=== PATIENT | male | born 1930 | race Caucasian/White ===

== ENCOUNTER 2017-01-20 10:54 | Emergency (ER) | payer MEDICARE ==
[~2017-01-20] VITALS: Ht 177.8 cm; Wt 76.0 kg
[~2017-01-20 10:54] MED LIST: ATORVASTATIN CA10 MG PO; CLOPIDOGREL75 MG PO; FERRO-BOB325 MG PO; METOPROL TAR25 MG PO; ONDANSETRON4 MG PO; RAMIPRIL2.5 MG PO; TAMSULOSIN0.4 MG PO
[2017-01-20 12:09] LABS: HEMATOCRIT 31.9 % (39.0-50.0); HEMOGLOBIN 11.3 g/dl (14.0-18.0); IMMATURE GRANULOCYTES 0.6 % (0.0-1.0); MEAN CORPUSCULAR HGB 35.4 pG CALC (26.0-32.0); MEAN CORPUSCULAR HGB CONC 35.4 g/L CALC (32.0-36.0); NEUT# 11.34 thou/uL (1.82-7.42); RED BLOOD COUNT 3.19 mill/uL (4.70-6.10); RED CELL DISTRI WIDTH 14.6 % (11.5-15.5)
[2017-01-20 12:17] LABS: CALCIUM 9.2 mg/dL (8.4-10.2); CREATININE 2.1 mg/dL (0.7-1.3); POTASSIUM 4.3 mmol/l (3.5-5.1)
[2017-01-20 13:02] LABS: URINE BILIRUBIN - DIPSTICK NEGATIVE (NEGATIVE); URINE BLOOD DIPSTICK MODERATE (NEGATIVE); URINE COLOR YELLOW; URINE GLUCOSE - DIPSTICK 100 mg/dL (NEGATIVE); URINE KETONE TRACE mg/dL (NEGATIVE); URINE LEUK ESTERASE NEGATIVE (NEGATIVE); URINE NITRITE - DIPSTICK NEGATIVE (Negative); URINE PROTEIN - DIPSTICK 100 mg/dL (NEG-TRACE); URINE SPECIFIC GRAVITY 1.025; URINE UROBILINOGEN - DIPSTICK 0.2 E.U./dL (0.2)
[2017-01-20 13:06] LABS: URINE CLARITY CLEAR
[2017-01-20 13:15] LABS: URINE HYALINE CAST FEW lpf (NONE-RARE); URINE SQUAMOUS EPITHELIAL CELL FEW EPI/hpf (0-FEW)
[2017-01-20 13:34] VITALS: BP 165/72
== END 2017-01-20 13:45 | disposition short-term general hospital (02) ==
LOC: ED 10:54
PROVIDERS: Family Medicine
DX: I21.4 Non-ST elevation (NSTEMI) myocardial infarction (principal); I10 Essential (primary) hypertension; I25.10 Atherosclerotic heart disease of native coronary artery without angina pectoris; Z95.1 Presence of aortocoronary bypass graft

== ENCOUNTER 2017-05-11 09:31 | Emergency (ER) | payer MEDICARE ==
[~2017-05-11] VITALS: Ht 177.8 cm; Wt 64.0 kg
[2017-05-11 10:37] LABS: ALBUMIN 4.2 g/dL (3.2-5.0); BILIRUBIN, TOTAL 2.3 mg/dL (0.0-1.4); TOTAL PROTEIN 7.5 g/dL (6.3-8.2)
[2017-05-11 10:39] LABS: INTERNATIONAL NORMALIZED RATIO 1.6 RATIO (0.7-1.3); PROTHROMBIN TIME 18.6 SECONDS (9.0-12.5)
[2017-05-11] MEDS ORDERED: KLOR-CON M2020 MEQ PO (10:44)
[2017-05-11] MEDS ORDERED: FUROSEMIDE20 MG PO (10:45)
[2017-05-11] MEDS ORDERED: VITAMIN B-12500 MCG PO (10:46)
[2017-05-11 10:58] LABS: INFLUENZA A NONE DETECTED (NONE DETECT); INFLUENZA B NONE DETECTED (NONE DETECT)
[2017-05-11 10:58] LABS: CREATININE 3.9 mg/dL (0.7-1.3); POTASSIUM 6.5 mmol/l (3.5-5.1)
[2017-05-11 11:04] LABS: URINE BILIRUBIN - DIPSTICK NEGATIVE (NEGATIVE); URINE BLOOD DIPSTICK MODERATE (NEGATIVE); URINE COLOR YELLOW; URINE GLUCOSE - DIPSTICK NEGATIVE (NEGATIVE); URINE KETONE NEGATIVE (NEGATIVE); URINE LEUK ESTERASE NEGATIVE (NEGATIVE); URINE NITRITE - DIPSTICK NEGATIVE (Negative); URINE PROTEIN - DIPSTICK 100 mg/dL (NEG-TRACE); URINE SPECIFIC GRAVITY >=1.030; URINE UROBILINOGEN - DIPSTICK 0.2 E.U./dL (0.2)
[2017-05-11 11:07] LABS: URINE CLARITY SL CLOUDY
[2017-05-11 11:08] LABS: URINE EPITHELIAL CELLS FEW EPI/hpf (0-FEW); URINE MUCUS MODERATE hpf (NONE-FEW)
[2017-05-11 11:11] LABS: HEMATOCRIT 32.6 % (39.0-50.0); HEMOGLOBIN 11.1 g/dl (14.0-18.0); IMMATURE GRANULOCYTES 0.8 % (0.0-1.0); NEUT# 9.4 thou/uL (1.82-7.42); RED BLOOD COUNT 3.26 mill/uL (4.70-6.10); RED CELL DISTRI WIDTH 19.5 % (11.5-15.5)
[2017-05-11 12:53] VITALS: BP 138/65
== END 2017-05-11 12:53 | disposition short-term general hospital (02) ==
LOC: ED 09:31
PROVIDERS: Family Medicine
DX: A41.9 Sepsis, unspecified organism (principal); I21.4 Non-ST elevation (NSTEMI) myocardial infarction; I10 Essential (primary) hypertension; I25.10 Atherosclerotic heart disease of native coronary artery without angina pectoris; Z95.1 Presence of aortocoronary bypass graft; Z85.46 Personal history of malignant neoplasm of prostate; I25.2 Old myocardial infarction; N17.9 Acute kidney failure, unspecified; R65.20 Severe sepsis without septic shock; E87.2 Acidosis; R74.0 Nonspecific elevation of levels of transaminase and lactic acid dehydrogenase [LDH]